=== PATIENT | male | born 2000 | race Caucasian/White ===

== ENCOUNTER → 2024-05-23 23:08 | Day surgery (SDC) | payer BC, SELFPAY ==
[2024-05-23 19:15] VITALS: BP 113/82
--- NOTE | 2024-05-23 20:40 | ED.GENMED ---
History of Present Illness
General
Chief Complaint: Esophageal Problem
Source: patient
Exam Limitations: none
Time Seen by Provider: 05/23/24 20:18
History of Present Illness
History of Present Illness:
Patient ate a chicken sandwich at 5:30 PM. Foreign body sensation in his upper esophagus. Has had this once before. Required endoscopy. Was told he has a narrow esophagus. Able to handle his secretions but states he cannot swallow water. Some
mild discomfort.
Past History
Past History
ED Past Medical History: Other (History of esophageal foreign body)
Review of Systems
Review of Systems
All Other Systems: Not applicable
Constitutional: Denies fever
Respiratory: Reports no symptoms
Cardiac: Denies chest pain
Phy Exam
Physical Exam
Physical Exam:
GENERAL: Alert and oriented in no apparent distress. Having hiccups
EYE: Orbits normal.
NECK: Supple, no swelling.
ENT: Pharynx without erythema. No foreign body. No drooling or stridor. Speech normal.
CARDIAC: Regular rate and rhythm without any obvious murmurs.
LUNGS: Clear breath sounds,normal
ABDOMEN: Soft, without focal tenderness or distention
NEUROLOGICAL: Alert and oriented , grossly non-focal
SKIN: Warm and dry, no rash or lesion, no discoloration, skin intact.
MUSCULOSKELETAL: No edema,no deformity.Good color
PSYCH: Normal and appropriate interaction.
Course
Orders/Labs/Results
Orders:
Orders
05/23/24 20:40
0.9% Sodium Chloride 1000 ml [Nss] 1,000 ml IV BOLUS
Glucagon [GlucaGen] 1 mg IV NOW STA
05/23/24 21:51
Fentanyl Citrate/Pf [Sublimaze] 100 mcg .ROUTE .STK-MED ONE
Lidocaine HCl/Pf [Xylocaine-Mpf 1% Vial] 50 mg .ROUTE .STK-MED ONE
Propofol [Diprivan] 20 ml .ROUTE .STK-MED
Rocuronium Enterprise [Rocuronium] 50 mg .ROUTE .STK-MED ONE
Succinylcholine Chloride [Succinylcholine] 200 mg .ROUTE .STK-MED ONE
05/23/24 21:57
Sugammadex Sodium [Bridion] 200 mg .ROUTE .STK-MED ONE
Vital Signs
Initial and Last Documented VS:
Initial Vital Signs
Temp Pulse Resp BP Pulse Ox
98.4 F 69 16 113/82 98
05/23/24 19:15 05/23/24 19:15 05/23/24 19:15 05/23/24 19:15 05/23/24 19:15
Last Documented Vital Signs
Temp Pulse Resp BP Pulse Ox
98.8 F 75 14 118/66 95
05/23/24 23:51 05/24/24 00:07 05/24/24 00:07 05/24/24 00:07 05/24/24 00:07
MDM/Problems Addressed
Differential Diagnosis Includes:
Describing esophageal foreign body. Will try glucagon. If this does not work will require endoscopy. Discussed with GI
*Pulse Oximetry
Patient hypoxic: no
*Critical Care Note
Total Time (30-74mins, 75-104mins- exclusive of procedures): Not Applicable
ED Attending Note
-
Portions of this chart may have been created with voice recognition software.� Occasional wrong word or��sound alike� substitutions may have occurred due to the inherent limitations of voice recognition software.
Discharge Plan
Departure
Patient Disposition: Admit
Date of Disposition: 05/23/24
Time of Disposition: 21:40
Presentation/result/management discussed w/ accepting MD/DO: gi
Discharge Problem:
Esophageal foreign body
Interventions
Interventions:
*Risk Screen - Suicide Last Done: 05/23/24 19:15
*General Assessment Last Done: 05/23/24 19:15
*Neglect/Abuse Screening Last Done: 05/23/24 19:15
*Nursing Disposition Last Done: 05/23/24 22:25
[facility]-Ejpzms-Xedcgsepkd Assessment Last Done: 05/23/24 21:08
ED-EENT Assessment Last Done: 05/23/24 21:08
Discharge Date and Time
Discharge Date/Time: 05/23/24 22:26
[2024-05-23] MEDS: GlucaGen 1 MG IV (21:05)
[2024-05-23] MEDS: NSS 1000 IV (21:05)
[2024-05-23 22:06] VITALS: BP 109/71
--- NOTE | 2024-05-23 22:48 | CON.GI ---
Consultation
-
Date/Time Consultation Requested: 05/23/24 945pm
Date/Time Consultation Performed: 05/23/24 1040pm
Requesting Provider: Dr Howe
Performing Provider: Dr Newsome
Reason for Consultation: food impaction
Medical History
Chief Complaint / HPI
Chief Complaint: food impaction
History of Present Illness:
Tarun is a 24yo M with h/o food allergies who presents for recurrent food impaction. He had chik filet at around 5:30pm for dinner and felt that food was stuck. He is able to tolerate secretions but not water. He was given IV glucagon 1mg IV at
around 945pm without relief. of note this has occurred in the past 1.5yrs ago where at [facility] he also required urgent EGD for food impaction. He does have h/o reflux and heartburn for which he uses omeprazole 20mg dailybasis. He does have food
allergies and seasonal allergies. He has not FU with any GI doc since his last impaction Denies odynophagia, chest pains, abd pain, or wt loss
Past Medical History
Past Medical History: Other (Food impactions, GERD seasonal allergies)
Past Surgical History: Other (EGD 1.5yrs ago at [facility])
Social History
Alcohol: Occasional
Drug: None
Personal: Other (Engaged)
Family History
Family History: Reviewed & Not Pertinent
Allergies / Home Medications
Allergy/AdvReac Type Severity Reaction Status Date / Time
No Known Allergies Allergy Unverified 05/23/24 19:15
�Medication �Instructions �Recorded
albuterol sulfate 90 mcg/actuation 2 puff inhalation R Q4HPRN PRN sob 05/23/24
aerosol inhaler
azelastine 137 mcg (0.1 %) nasal 1 spray intranasal BIDPRN PRN 05/23/24
spray conjestion
fluticasone propionate 50 1 spray intranasal DAILYPRN PRN 05/23/24
mcg/actuation nasal conjestion
spray,suspension
ibuprofen 200 mg tablet 400 mg PO Q6HPRN PRN mild pain 05/23/24
levocetirizine 5 mg tablet (Xyzal) 5 mg PO DAILY 05/23/24
omeprazole 40 mg capsule,delayed 40 mg PO DAILY 05/23/24
release
Review of Systems
-
All other systems: A 12 pt ROS was Negative except as stated above in HPI
Vital Signs
Temp Pulse Resp BP Pulse Ox
98.4 F 69 16 109/71 98
05/23/24 19:15 05/23/24 19:15 05/23/24 19:15 05/23/24 22:06 05/23/24 22:06
Physical Exam
Exam
GEN: No acute distress, conversant, pleasant
HEENT: anicteric, extraocular movements intact, clear oropharynx without exudates
GI: soft, non-distended, not tender to palpation, normal active bowel sounds, no hepatosplenomegaly
EXT: warm, well perfused, no edema bilaterally
NEURO: AAOx3, non-focal
Results
Diagnostic Image Results:
None
Prior GI Procedures:
EGD: 1.5yrs ago food disimpaction. no results available
Colonoscopy none prior:
Assessment / Plan
-
24yo M with h/o seasonal and food allergies who presents with recurrent esophageal food impaction.
Recommendation
- Urgent EGD today
- IV access
- Intubation
- Risk/benefits discussed
- C/w PPI
- Anticipate d/c after above
Will follow with you
-
-
Thank you for consultation and allowing me to participate in the patient's care. Please call the carbon dioxide operator GI physician during the after hours with any questions or concerns.
[2024-05-23 23:23] VITALS: BP 113/82
[2024-05-23 23:24] VITALS: BP 104/58
[2024-05-23 23:30] VITALS: BP 122/62
[2024-05-23 23:45] VITALS: BP 117/67
[2024-05-24] VITALS: BP 113/67
[2024-05-24 00:07] VITALS: BP 118/66
== END ==
LOC: EMR 19:05 → PACU 23:08
PROVIDERS: ATTENDING PHYSICIAN Internal Medicine Gastroenterology; EMERGENCY PHYSICIAN Emergency Medicine; FAMILY PHYSICIAN Family Medicine
DX: T18.128A Food in esophagus causing other injury, initial encounter (principal); W44.F3XA Food entering into or through a natural orifice, initial encounter; K21.9 Gastro-esophageal reflux disease without esophagitis
CPT/HCPCS: 43247; 96361; 96374; 99285; J1610